=== PATIENT | male | born 1970 | race Caucasian/White ===

== ENCOUNTER 2023-06-04 01:03 | Inpatient (IN) | payer OTHER ==
[2023-06-04 02:22] LABS: BASO % 0.8 % (0-2.0); EOS % 2.4 % (0-4.5); HEMATOCRIT 43.3 % (35.4-49); HEMOGLOBIN 14.5 GM/dL (11.7-16.9); LYMPH % 26.8 % (8-40); MCH 29.8 pg (25.7-33.7); MCHC 33.5 g/dl (32.0-35.9); MEAN CELL VOLUME 89.2 fl (80-96); MEAN PLT VOLUME 8.3 fl (7.5-11.1); MONO % 8.4 % (3.8-10.2); NEUT % 61.6 % (42.8-82.8); PLATELET COUNT 193 10^3/uL (134-434); RBC 4.85 M/mm3 (4.00-5.60); RDW 13.2 % (11.9-15.9); WHITE BLOOD COUNT 6.4 K/mm3 (4.0-10.0)
[2023-06-04 02:27] LABS: INR 0.94 (0.83-1.09); PROTHROMBIN TIME (PATIENT) 10.9 SEC (9.7-13.0)
[2023-06-04 02:30] LABS: ACTIVATED PTT 31.2 SECONDS (25.2-36.5)
[2023-06-04 02:39] LABS: POTASSIUM 4.2 mmol/L (3.5-5.1)
[2023-06-04 02:41] LABS: CALCIUM 9.1 mg/dL (8.5-10.1)
[2023-06-04 02:42] LABS: ALBUMIN 3.6 g/dl (3.4-5.0)
[2023-06-04 02:43] LABS: BLOOD UREA NITROGEN 15.8 mg/dL (7-18)
[2023-06-04 02:45] LABS: CREATININE 1.1 mg/dL (0.55-1.3)
[2023-06-04 02:47] LABS: TOT PROT 6.6 g/dl (6.4-8.2)
[2023-06-04 02:48] LABS: BILIRUBIN,TOTAL 0.4 mg/dL (0.2-1)
[2023-06-04] MEDS: ASPIRIN 81 MG CHEWABLE TABLETS PO ONE ×3 (03:02→09:46)
[2023-06-04] MEDS: ATORVASTATIN CA 80 MG TABLET (FP) PO ONE (03:03)
[2023-06-04] MEDS ORDERED: ASPIRIN 81 MG CHEWABLE TABLETS ONE (09:57)
[2023-06-04] MEDS: ATORVASTATIN CA 80 MG TABLET (FP) PO SCH (22:02)
[2023-06-04 23:35] VITALS: BMI 23.1
[2023-06-05] MEDS: ASPIRIN 81 MG CHEWABLE TABLETS PO SCH (09:52)
[2023-06-05 15:31] VITALS: BP 124/78; PULSE 70; RESP 18; TEMP 97.8
== END 2023-06-05 17:27 | disposition home or self-care (01) | DRG 45 ==
LOC: JER 01:03 → JERBED 06:19 → OBSVTOIN 06:56 → J4W 21:17
PROVIDERS: ADMIT Internal Medicine; ATTEND Nurse Practitioner Acute Care
DX: I63.89 Other cerebral infarction (principal); R29.702 NIHSS score 2; R29.898 Other symptoms and signs involving the musculoskeletal system; R53.1 Weakness; R73.03 Prediabetes; E78.5 Hyperlipidemia, unspecified
CPT/HCPCS: 36415; 70450-TC; 70496-TC; 70498-TC; 70551-TC; 71045-TC-FY; 80053; 80061; 82550; 82553; 83036; 83735; 84484; 85025; 85610; 85730; 86850; 86900; 86901; 93005; 93010; 93306-TC; 97116-GP; 99285-25; G0378